=== PATIENT | female | born 1935 | race Caucasian/White ===

== ENCOUNTER → 2017-01-08 | Outpatient (CLI) | payer OTHER | END | disposition home or self-care (01) | LOC: RAD 10:43 | DX: Z13.820 Encounter for screening for osteoporosis (principal); Z78.0 Asymptomatic menopausal state ==

== ENCOUNTER 2017-05-05 13:33 | Emergency (ER) | payer OTHER ==
[~2017-05-05] VITALS: Ht 157.4 cm; Wt 96.2 kg
[2017-05-05] MEDS ORDERED: NORCO 5-325 TA1 EACH PO (15:17)
== END 2017-05-05 15:45 | disposition home or self-care (01) ==
LOC: ED 13:33
DX: S42.295A Other nondisplaced fracture of upper end of left humerus, initial encounter for closed fracture (principal); S00.83XA Contusion of other part of head, initial encounter; M25.522 Pain in left elbow; M25.512 Pain in left shoulder; M54.2 Cervicalgia; Z88.0 Allergy status to penicillin; Z88.4 Allergy status to anesthetic agent; Z90.89 Acquired absence of other organs; W18.09XA Striking against other object with subsequent fall, initial encounter; Y93.89 Activity, other specified; Y92.481 Parking lot as the place of occurrence of the external cause; Y99.9 Unspecified external cause status

== ENCOUNTER → 2017-06-02 | Outpatient (CLI) | payer OTHER ==
[~2017-06-02] MED LIST: NORCO 5-325 TA1 EACH PO
== END | disposition home or self-care (01) ==
LOC: ORTHO 02:14
DX: S42.392D Other fracture of shaft of left humerus, subsequent encounter for fracture with routine healing (principal); X58.XXXD Exposure to other specified factors, subsequent encounter

== ENCOUNTER → 2017-06-30 | Outpatient (CLI) | payer OTHER | END | disposition home or self-care (01) | LOC: ORTHO 03:09 | DX: S42.222D 2-part displaced fracture of surgical neck of left humerus, subsequent encounter for fracture with routine healing (principal); X58.XXXD Exposure to other specified factors, subsequent encounter ==

== ENCOUNTER → 2017-07-27 | Outpatient (CLI) | payer OTHER | END | disposition home or self-care (01) | LOC: ORTHO 01:27 | DX: S42.212D Unspecified displaced fracture of surgical neck of left humerus, subsequent encounter for fracture with routine healing (principal); X58.XXXD Exposure to other specified factors, subsequent encounter ==

== ENCOUNTER → 2017-09-20 | Outpatient (CLI) | payer OTHER | END | disposition home or self-care (01) | LOC: ORTHO 03:36 | DX: S42.212D Unspecified displaced fracture of surgical neck of left humerus, subsequent encounter for fracture with routine healing (principal); X58.XXXD Exposure to other specified factors, subsequent encounter ==

== ENCOUNTER 2019-03-14 17:22 | Emergency (ER) | payer OTHER ==
[~2019-03-14] VITALS: Ht 157.4 cm; Wt 93.0 kg
--- NOTE | ~2019-03-14 | EKG ---
[place], [place] ELECTROCARDIOGRAM REPORT NAME: KAYDEN GANDARA UNIT #: [id number] [facility] BIRTHDATE: [birth year] [facility] Test Date: 2019-03-14 Test Time: 17:47:10 Pat Name: KAYDEN GANDARA Department: Room: [facility] Gender: F Microwave Technician: Maria A Rangel : 1935 Requested By: KIET RUBALCAVA Order Number: [id number] Reading MD: Alcides Alas MD Measurements Intervals [place] Rate: 58 P: 24 IA: 183 QRS: -41 QRSD: 133 T: 129 QT: 470 QTc: 462 Interpretive Statements Sinus rhythm LVH with IVCD, LAD and secondary repol abnrm Electronically Signed On 03-21-2019 4:01:26 PDT by Alcides Alas MD CM:EKGRPT:ELECTROCARDIOGRAM REPORT [id number] KIET ASENCIO DRAFT REPORT KIET RUBALCAVA M.D.
[2019-03-14 17:58] LABS: BASO # 0.1 10*3/uL (0.0-0.1); BASO % 0.9 % (0.0-1.0); EOS # 0.2 10*3/uL (0.0-0.4); EOS % 2.7 % (1.0-4.0); HEMOGLOBIN 10.2 g/dl (12.0-16.0); LYMPH % 13.2 % (27.0-41.0); MEAN CORPUSCULAR HGB 29.1 pg (27.0-31.0); MEAN CORPUSCULAR HGB CONC 30.9 g/dl (33.0-37.0); MEAN PLATELET VOLUME 10.3 fl (9.6-12.3); MONO # 0.5 10*3/uL (0.1-1.0); MONO % 5.9 % (3.0-9.0); NEUT # 5.9 10*3/uL (2.3-7.9); NEUT % 76.9 % (47.0-73.0); PLATELET COUNT AUTOMATED 203 10*3/uL (130-400); RED BLOOD COUNT 3.51 10*6/uL (4.10-5.10); RED CELL DISTRI WIDTH 14.6 % (0-14.5); WHITE BLOOD COUNT 7.7 10*3/uL (4.8-10.8)
[2019-03-14 18:12] LABS: ALBUMIN 3.8 gm/dl (3.1-4.5); CREATININE 2.08 mg/dL (0.55-1.02); POTASSIUM 3.8 mmol/L (3.5-5.1); TOTAL PROTEIN 7.3 gm/dL (6.4-8.2)
[2019-03-14] MEDS ORDERED: FUROSEMIDE20 M1 PO (20:29)
[2019-03-14] MEDS ORDERED: ELIQUIS5 M1 PO (20:29)
[2019-03-14] MEDS ORDERED: AMIODARONE HYD200 MG PO (20:29)
[2019-03-14] MEDS ORDERED: PANTOPRAZOLE SO40 MG PO (20:30)
[2019-03-14] MEDS ORDERED: 'CLONIDINE0.1 MG PO (21:35)
== END 2019-03-14 21:08 | disposition home or self-care (01) ==
LOC: ED 17:22
PROVIDERS: Emergency Medicine
DX: I10 Essential (primary) hypertension (principal); Z88.0 Allergy status to penicillin; Z88.4 Allergy status to anesthetic agent

== ENCOUNTER 2019-09-16 09:53 | Emergency (ER) | payer OTHER ==
[~2019-09-16] VITALS: Ht 152.4 cm; Wt 81.2 kg
[~2019-09-16 09:53] MED LIST changes: +'CLONIDINE0.1 MG PO; +AMIODARONE HYD200 MG PO; +ELIQUIS5 M1 PO; +FUROSEMIDE20 M1 PO; +PANTOPRAZOLE SO40 MG PO
[2019-09-16] MEDS ORDERED: FUROSEMIDE40 MG PO (10:36)
[2019-09-16] MEDS ORDERED: ALDACTONE25 MG PO (10:36)
[2019-09-16] MEDS ORDERED: PROPAFENONE HY150 MG PO (10:38)
[2019-09-16] MEDS ORDERED: VITAMIN D50000 UNIT PO (10:39)
[2019-09-16] MEDS ORDERED: ELIQUIS2.5 M1 PO (10:41)
== END 2019-09-16 13:39 | disposition home or self-care (01) ==
LOC: ED 09:53
DX: S51.011A Laceration without foreign body of right elbow, initial encounter (principal); S00.93XA Contusion of unspecified part of head, initial encounter; I10 Essential (primary) hypertension; I48.91 Unspecified atrial fibrillation; Z88.0 Allergy status to penicillin; Z88.4 Allergy status to anesthetic agent; Z79.899 Other long term (current) drug therapy; W01.0XXA Fall on same level from slipping, tripping and stumbling without subsequent striking against object, initial encounter; Y93.89 Activity, other specified; Y92.098 Other place in other non-institutional residence as the place of occurrence of the external cause; Y99.8 Other external cause status

== ENCOUNTER 2019-09-25 19:55 | Inpatient (IN) | payer OTHER ==
[~2019-09-25] VITALS: Ht 162.6 cm; Wt 95.3 kg
[2019-09-25] VITALS (10 sets, daily range): BP systolic 83–184; BP diastolic 37–94
[~2019-09-25 19:55] MED LIST changes: +ALDACTONE25 MG PO; +ELIQUIS2.5 M1 PO; +FUROSEMIDE40 MG PO; +PROPAFENONE HY150 MG PO; +VITAMIN D50000 UNIT PO
--- NOTE | 2019-09-25 20:16 | NUR ---
PAtient intubated by physician with 7.5 tube, secured at 24 at the teeth. Placed on Vent AC 16, Tidal volume 450, FIO2 100%, Peep +5. Alarms on an functional.
[2019-09-25 21:06] LABS: HEMATOCRIT 34.7 % (37.0-47.0); HEMOGLOBIN 10.4 g/dl (12.0-16.0); MEAN CELL VOLUME 94.3 fl (81.0-99.0); MEAN CORPUSCULAR HGB 28.3 pg (27.0-31.0); MEAN PLATELET VOLUME 10.8 fl (9.6-12.3); PLATELET COUNT AUTOMATED 192 10*3/uL (130-400); RED BLOOD COUNT 3.68 10*6/uL (4.10-5.10); RED CELL DISTRI WIDTH 16.1 % (0-14.5); WHITE BLOOD COUNT 11.5 10*3/uL (4.8-10.8)
[2019-09-25 21:14] LABS: INTERNATIONAL NORM RATIO 1.1 (2.0-3.5)
--- NOTE | 2019-09-25 21:17 | NUR ---
ET tube pulled back and secured at 22 at the teeth.
[2019-09-25 21:23] LABS: ALBUMIN 3.5 gm/dl (3.1-4.5); CREATININE 2.3 mg/dL (0.55-1.02); POTASSIUM 5.4 mmol/L (3.5-5.1); TOTAL PROTEIN 7.1 gm/dL (6.4-8.2)
[2019-09-25 21:25] LABS: TROPONIN I 0.111 ng/ml (<0.045)
[2019-09-25 21:28] LABS: BASOPHILS 1 % (0-1); TOTAL CELLS COUNTED 100 #CELLS
[2019-09-25 21:29] LABS: OVALOCYTES FEW; PLATELET SUFFICIENCY NORMAL (NORMAL)
--- NOTE | 2019-09-25 21:30 | NUR ---
FAMILY ASKED FOR NO PHOTOS TO BE TAKEN, UNABLE TO OBTAIN WOUND PHOTOS
[2019-09-25 21:48] LABS: BILIRUBIN NEGATIVE (NEGATIVE); BLOOD 3+ (NEGATIVE); CLARITY CLOUDY (CLEAR); COLOR YELLOW (YELLOW); GLUCOSE NEGATIVE (NEGATIVE); KETONE NEGATIVE (NEGATIVE); LEUKO ESTERASE TRACE (NEGATIVE); NITRITE NEGATIVE (NEGATIVE); SPECIFIC GRAVITY >= 1.030 (1.005-1.030); UROBILINOGEN 0.2 E.U./dl (0.2-1.0)
[2019-09-25 21:54] LABS: BACTERIA 2+; WBC 31-40 wbc/hpf (0-5)
--- NOTE | 2019-09-25 22:30 | NUR ---
A 84, admitted to ICCU, under the services of JUAN LUIS Tabares DO with a diagnosis of CHF, RESPIRATORY FAILURE. Chief complaint is SHORTNESS OF BREATH. Patient arrived via stretcher from ER. Monitor applied. Initial assessment completed. Vital signs taken and recorded. JUAN LUIS TABARES DO notified of admission to the unit. Orders received. See assessment for past medical history, medications and allergies. Patient and/or family oriented to unit. [facility]U visitation policy reviewed. Clothing/patient valuable form completed. ANAT BRADY
--- NOTE | 2019-09-25 22:41 | NUR ---
NO FAMILY WITH PATIENT. PATIENT IS INTUBATED AND SEDATED, UNABLE TO ASK QUESTIONS OR GET ANSWERS AT THIS TIME. UNABLE TO CONFIRM MEDICATIONS, ALLERGIES, ETC.
--- NOTE | 2019-09-25 23:05 | NUR ---
PATIENT ARRIVED BACK FROM CT WITH RN AND TWO RESPIRATORY THERAPISTS. VITALS SIGNS STABLE AT THIS TIME. PATIENT IS ON FENTANYL DRIP, AWAKE, RESTLESS IN BED.
[2019-09-25 23:40] LABS: ABG BASE EXCESS -1.3 mmol/L (-2.0-2.0); ARTERIAL BLOOD GAS PH 7.287 (7.35-7.45)
--- NOTE | 2019-09-25 23:40 | NUR ---
CALL OUT TO [facility], DR FUCHS TURRET PRESS OPERATOR. MESSAGE LEFT, AWAITING CALL BACK
--- NOTE | 2019-09-25 23:50 | NUR ---
DR GIBSON CALLED AND ORDERS RECIEVED
--- NOTE | 2019-09-25 23:55 | NUR ---
THE REST OF THE IV FENTANYL WASTED AND WITNESSED BY ANAT MAURICIO. APPROXIMATELY 45ML WAS LEFT IN BAG, DUMPED INTO MEDICATION WASTE CONTAINER. PATIENT WAS THEN SWITCHED TO DIPROVAN PER MD ORDER
[2019-09-26] VITALS (9 sets, daily range): BP systolic 103–188; BP diastolic 26–77
--- NOTE | 2019-09-26 00:15 | NUR ---
VENT CHANGES MADE PER ORDER. RATE INCREASED TO 20. FIO2 DECREASED TO 40%. WILL CONTINUE TO MONITOR
[2019-09-26 03:35] LABS: BASO % 0.3 % (0.0-1.0); EOS # 0.3 10*3/uL (0.0-0.4); EOS % 2.3 % (1.0-4.0); HEMATOCRIT 30.3 % (37.0-47.0); HEMOGLOBIN 9.4 g/dl (12.0-16.0); LYMPH # 0.4 10*3/uL (1.3-4.4); LYMPH % 3.2 % (27.0-41.0); MEAN CELL VOLUME 92.1 fl (81.0-99.0); MEAN CORPUSCULAR HGB 28.6 pg (27.0-31.0); MEAN PLATELET VOLUME 11.1 fl (9.6-12.3); MONO # 0.6 10*3/uL (0.1-1.0); MONO % 4.9 % (3.0-9.0); NEUT # 10.6 10*3/uL (2.3-7.9); PLATELET COUNT AUTOMATED 160 10*3/uL (130-400); RED BLOOD COUNT 3.29 10*6/uL (4.10-5.10); RED CELL DISTRI WIDTH 15.9 % (0-14.5); WHITE BLOOD COUNT 11.9 10*3/uL (4.8-10.8)
--- NOTE | 2019-09-26 03:50 | NUR ---
WOUND CARE ORDERS OBTAINED FROM DR DUFF AT THIS TIME
[2019-09-26 03:53] LABS: ALBUMIN 3.1 gm/dl (3.1-4.5); CREATININE 2.24 mg/dL (0.55-1.02); PHOSPHOROUS 3.8 mg/dL (2.5-4.9); POTASSIUM 5.8 mmol/L (3.5-5.1); TOTAL PROTEIN 6.6 gm/dL (6.4-8.2)
[2019-09-26 03:55] LABS: FREE T4 1.49 ng/dl (0.76-1.46)
[2019-09-26 04:00] LABS: THYROID STIM HORMONE (HS) 1.75 uIU/ml (0.358-4.75)
--- NOTE | 2019-09-26 04:29 | NUR ---
DRESSINGS APPLIED TO WOUNDS PER DRS ORDERS. SEE WOUNDS SCREEN AND ORDERS
[2019-09-26 06:16] LABS: VITAMIN D, 25-HYDROXY 54.1 ng/mL (30-100)
--- NOTE | 2019-09-26 06:22 | NUR ---
KAYDEN GANDARA [id number] Please refer to the physician's history and physical for past medical history, comorbid conditions, and allergies. Diagnosis: CHF RESPIRATORY FAILURE Cortes Score: 15,AT RISK WOUND DESCRIPTIONS: Wound Number: 1 Location of the wound: right elbow Type of wound: skin tear Thickness: Partial Size: 2.8cm x 4.1cm x 0.1cm Tunneling: none Undermining: none Sinus Tract: none Presence of Exudate: Serosanguineous Amount: Light Color: Red Odor: None Periwound Skin Appearance: Normal Wound edges: approximated Pain (associated with wound): none at time of assessment How does patient state this happened? pt unable to state how this happened Wound Number: 2 Location of the wound: left upper arm Type of wound: skin tear Thickness: Partial Size: 0.4cm x 0.8cm x 0.1cm Tunneling: none Undermining: none Sinus Tract: none Presence of Exudate: Serosanguineous Amount: Light Color: Red Odor: None Periwound Skin Appearance: Normal Wound edges: approximated Pain (associated with wound): none at time of assessment How does patient state this happened? pt unable to state how this happened Wound Number: 3 Location of the wound: bridge of nose Thickness: Partial Size: 0.1cm x 1.0cm x 0.1cm Tunneling: none Undermining: none Sinus Tract: none Presence of Exudate: Serosanguineous Amount: Light Color: Red Odor: None Periwound Skin Appearance: Normal Wound edges: approximated Pain (associated with wound): none at time of assessment How does patient state this happened? pt unable to state how this happened Surface the patient is resting on: XPRT SKIN PREVENTION RECOMMENDATION: 1. Pressure redistribution support surface as appropriate 2. Elevate heels 3. Remove boots/TEDS every shift and reapply 4. Head of bed 30 degrees as tolerated 5. Assess nutrition and hydration 6. Manage moisture 7. Avoid the use of containment devices while in bed 8. Use absorptive products on surfaces limit layers of linens on bed 9. Turn and reposition every 1-2 hours in bed and every 1 hour in chair as tolerated 10. Weight shifts every 15 minutes while up in chair 11. Offloading with pillows or device to keep heels elevated off bed 12. Monitor skin at least every shift 13. Inspect under medical devices twice a day WOUND TREATMENT RECOMMENDATIONS: Clarify skin tear guidelines: Cleanse right elbow with nss and apply sureprep around the wound hydrogel and versatel to wound bed and cover with optifoam gentle every 2 days and prn. Continue skin tear guidelines to left upper arm. d/c skin tear guidelines to bridge of nose Partial thickness guidelines: Cleanse bridge of nose with nss and apply sureprep around the wound hydrogel to wound bed and cover with bandaid daily and prn for soiling. Heel raiser pro boots to bilateral feet while in bed.
[2019-09-26 07:03] LABS: ABG BASE EXCESS 0.7 mmol/L (-2.0-2.0); ARTERIAL BLOOD GAS PH 7.415 (7.35-7.45)
--- NOTE | 2019-09-26 08:35 | NUR ---
Dr. Gillespie notified of wound care recommendations.
--- NOTE | 2019-09-26 09:00 | NUR ---
ECHO BEING DONE AT BEDSIDE
--- NOTE | 2019-09-26 09:00 | NUR ---
RESTING IN BED. SEDATED ON VENT. REMAINS ON DIPRIVAN GTT AT 25 MERARI'S VIA RIGHT FEMORAL MULTILUMEN CATHETER. PULSE OX 96% ON VENT FIO2 40%. 3+ PITTING EDEMA NOTED BILATERAL FEET. CODY DRAINING CLEAR YELLOW URINE
--- NOTE | 2019-09-26 10:15 | NUR ---
OCCUPATIONAL THERAPY Per medical meeting pt still intubated on vent not appropriate at this time will follow. Alexandra Cam OTR/L
--- NOTE | 2019-09-26 10:22 | NUR ---
PHYSICAL THERAPY Per medical meeting pt still intubated on vent not appropriate at this time will follow. Zhanna Sheridan PT
--- NOTE | 2019-09-26 10:25 | NUR ---
DIPRIVAN GTT TURNED OFF.
--- NOTE | 2019-09-26 10:58 | NUR ---
PATIENT CHANGED TO C-PAP 5, PSV +10.
--- NOTE | 2019-09-26 11:00 | NUR ---
PLACED ON C-PAP
--- NOTE | 2019-09-26 11:59 | NUR ---
Nutritional Support Services Note: Pt. isidro in vent. Dx of chf and resp failure. Pt. is NPO receiving Pulmocare infusing at 20 ml/hr. Ht: 5"4' CBW: 210# Tube feeding provides 480 cc/720 pablo/24 hrs. Monitor for advancement of PO intake. Follow as needed. Sophia Wagner, U dietetic student
[2019-09-26 12:53] LABS: ABG BASE EXCESS 1.6 mmol/L (-2.0-2.0); ARTERIAL BLOOD GAS PH 7.394 (7.35-7.45)
--- NOTE | 2019-09-26 13:00 | NUR ---
Mental Health Advanced Practice Nurse in to see patient. She is currently intubated. Will follow up at a later time.
--- NOTE | 2019-09-26 13:04 | NUR ---
ABG RESULTS CALLED TO DR. GIBSON. ORDERS RECEIVED TO EXTUBATE
[2019-09-26] MEDS ORDERED: BENICAR5 MG PO (14:45)
[2019-09-26] MEDS ORDERED: ROBAXIN-750750 MG PO (14:47)
[2019-09-26] MEDS ORDERED: LASIX40 MG PO (14:48)
[2019-09-26] MEDS ORDERED: VITAMIN D10000 UNIT PO (14:52)
[2019-09-26] MEDS ORDERED: MIRALAX119 GM PO (15:00)
[2019-09-26] MEDS ORDERED: IRON325 M1 PO (15:13)
--- NOTE | 2019-09-26 15:14 | NUR ---
MED REC UPDATED PER [facility]
--- NOTE | 2019-09-26 20:02 | NUR ---
DR LIZARRAGA NOTIFIED OF POSITIVE BLOOD CULTURES. ORDERS RECEIVED.
--- NOTE | 2019-09-26 21:15 | NUR ---
PT REMAINS WITHOUT DISTRESS. COUGH IS STILL MOIST AND LOOSER PER PT. REMAINS WHEEZY. PULSE OX REMAINS >90% SINCE TITRATED DOWN TO 3L BY RESP DEPT.
--- NOTE | 2019-09-26 21:32 | NUR ---
PT AWOKE FOR PM MEDICATIONS. SHE WAS SLEEPING WITH MOUTH OPEN AND PULSE OX DIPPING INTO THE UPPER 80'S ON NC3. INCREASED O2 TO 4L, PT AWOKE EASILY, AND TOOK PO MEDICATIONS WITHOUT ANY DIFFICULTY. PULSE OX NOW 96%.
[2019-09-27] VITALS: BP 153/63
--- NOTE | 2019-09-27 03:53 | NUR ---
ASSESSMENT COMPLETE. PT REMAINS PLEASANT AND WITHOUT COMPLAINTS.
[2019-09-27 04:00] VITALS: BP 165/57
[2019-09-27 05:49] LABS: CREATININE 2.4 mg/dL (0.55-1.02)
[2019-09-27 05:50] LABS: POTASSIUM 4.2 mmol/L (3.5-5.1)
[2019-09-27 06:13] LABS: HEMATOCRIT 29.3 % (37.0-47.0); HEMOGLOBIN 9.1 g/dl (12.0-16.0); MEAN CELL VOLUME 90.2 fl (81.0-99.0); MEAN CORPUSCULAR HGB CONC 31.1 g/dl (33.0-37.0); MEAN PLATELET VOLUME 11.4 fl (9.6-12.3); PLATELET COUNT AUTOMATED 208 10*3/uL (130-400); RED BLOOD COUNT 3.25 10*6/uL (4.10-5.10); RED CELL DISTRI WIDTH 16.3 % (0-14.5); WHITE BLOOD COUNT 11.4 10*3/uL (4.8-10.8)
[2019-09-27 06:40] LABS: TOTAL CELLS COUNTED 100 #CELLS
[2019-09-27 06:41] LABS: OVALOCYTES FEW; PLATELET SUFFICIENCY NORMAL (NORMAL); TOXIC GRANULATION SLIGHT
[2019-09-27 08:00] VITALS: BP 154/68
--- NOTE | 2019-09-27 08:55 | NUR ---
DR. GIBSON HERE TO SEE PATIENT
--- NOTE | 2019-09-27 09:00 | NUR ---
Lathe Mechanic in to talk to patient. Patient states lives at home alone with her family checking in on her. There are 12 steps in the home. Physician: Dr. Roman Neff Pharmacy: [facility] Home health services: none Patient's level of ADLs: MINIMAL ASSIST Patient has working utilities: yes DME: cane, walker, O2 @ 2L nc, portable O2 tanks, O2 supplier in [place] Follow-up physician's appointment after d/c: will be made by the hospitalist nurse director upon discharge Does patient want to access PORTAL?: no Discharge plan discussed with patient. She lives at home alone with her family checking in on her. She states she is normally independent in her ADLs and ambulates with either a cane or a walker. She stays on the 1st floor of her home and sleeps up in her recliner. Discussed short term SNF and she is agreeable. When provided with a list of facilities she chose 1. [facility], [facility]. [facility], and 3. [facility]. Discussed home health care services and she is agreeable. When provided with a list of agencies she chose [facility] as she has had them in the past. land use planner notified for SNF referrals. She states her daughter will provide transportation on discharge. SAMRA MACK
--- NOTE | 2019-09-27 09:29 | NUR ---
Upon discharge recommend patient to follow up for wound care in outpatient setting continue current wound care orders at discharging facility.
--- NOTE | 2019-09-27 09:40 | NUR ---
Occupational therapy orders received and OT evaluation completed in full in the ICCU. Patient precautions include fall risk, ww use, 4LO2, heart monitor, and B/L LE weakness. Per OT eval, OT recommends a SNF. If refused, home with HH SN, OT, and PT. Patient would benefit from continued OT treatment to maximize safety and independence with ADLs, mobility, and transfers[place], [address]. Thank you for the referral. Aishwarya Fang, OTR/L
--- NOTE | 2019-09-27 10:00 | NUR ---
TRANSFERRED TO ROOM 407-1 VIA CHAIR. REPORT GIVEN TO RN
--- NOTE | 2019-09-27 10:47 | NUR ---
PHYSICAL THERAPY Eval completed pt moderate level of complexity 01909 full report to follow recomend SNF at discharge. PT to work on transfers, amb with AD, strengthening balance/safety. Zhanna Sheridan PT
--- NOTE | 2019-09-27 11:43 | NUR ---
Faxed demographics sheet to [facility] for benefits check. Waiting on response.
[2019-09-27 12:00] VITALS: BP 123/43
--- NOTE | 2019-09-27 14:21 | NUR ---
PHYSICAL THERAPY Patient seen this pm 1:1 for therapy visit and was sitting up in bedside chair, her daughter present upon therapist arrival. Patient identified by name / and reports no new c/o's at this time. Patient also presented with continuous O2-3L via NC, recording resting HR 74 bpm. Patient performed several sit to stand transfers, MIN A, with use of wh walker standing support. Patient tolerated approx 1 minute static stand each trial recording increase HR 88 bpm. Patient fatigues quickly, requiring brief seated rest between attmepts and instructed on seated B LE therex. Patient performed seated B LE therex, all planes x 10 reps each and remained in bedside chair with call light, tray table, and telephone under her daughters Supervision. Will continue per POC as tolerated, total treatment time 17 minutes. Ramon Pina, NURSE OFFICE
[2019-09-27 16:00] VITALS: BP 145/45
--- NOTE | 2019-09-27 19:26 | NUR ---
PT AWAKE SITTING UP IN CHAIR. NO S/S OF DISTRESS NOTED. O2 IN USE. RESPIRATORY AT BEDSIDE. WILL MONITOR. CALL LIGHT IN REACH.
[2019-09-27 20:00] VITALS: BP 140/43
[2019-09-28] VITALS: BP 140/48
[2019-09-28 06:22] LABS: HEMATOCRIT 29.9 % (37.0-47.0); HEMOGLOBIN 9.2 g/dl (12.0-16.0); MEAN CELL VOLUME 91.7 fl (81.0-99.0); MEAN CORPUSCULAR HGB 28.2 pg (27.0-31.0); MEAN CORPUSCULAR HGB CONC 30.8 g/dl (33.0-37.0); MEAN PLATELET VOLUME 11.1 fl (9.6-12.3); PLATELET COUNT AUTOMATED 212 10*3/uL (130-400); RED BLOOD COUNT 3.26 10*6/uL (4.10-5.10); RED CELL DISTRI WIDTH 16.3 % (0-14.5); WHITE BLOOD COUNT 13.6 10*3/uL (4.8-10.8)
[2019-09-28 06:35] LABS: CREATININE 2.42 mg/dL (0.55-1.02); POTASSIUM 4.4 mmol/L (3.5-5.1)
[2019-09-28 07:21] LABS: ATYPICAL LYMPHS 1 % (0-0); OVALOCYTES MODERATE; POLYCHROMASIA SLIGHT; TOTAL CELLS COUNTED 100 #CELLS
[2019-09-28 07:22] LABS: PLATELET SUFFICIENCY NORMAL (NORMAL)
--- NOTE | 2019-09-28 07:45 | NUR ---
PHYSICAL THERAPY Patient seen this am 1:1 for therapy visit and was sitting up in bedside chair upon therapist arrival. Patient identified by name / and was very pleasant this morning voicing no c/o's pain. Patient presented with continuous O2-2L via NC and resting HR 68 bpm. Patient performed several sit to stand transfers from low chair surface, MIN A, needing v/c for proper hand placement to improve transfer technique. Patient ambulated with use of wh walker, CGA, 30'x 1, demonstrating very slow, cautious gait pattern, especially during all turns. Patient required v/c to improve walker safety and step sequence, then returned to bedside chair with mild fatigue. Patient stated she was pleased wiht her performance this session and that it felt good to walk again. Patient also received instruction on visual fixation technique during gait ex to improve steady balance to reduce risk of fear of falling. Patient remained in bedside chair with call light, tray table and telephone. Will continue per POC as tolerated, total treatment time 16 minutes. Ramon Pina, ACCOUNT DEVELOPMENT REPRESENTATIVE
--- NOTE | 2019-09-28 07:50 | NUR ---
OT NOTE Pt was seen this A.M. 1:1 for 20 minute OT session. Upon arrival pt was sitting semi reclined in the recliner. Pt identified by name and and had no complaints at this time. Pt presented to therapy with continuous 2L-O2 via NC which she remained on throughout the entire session. Pt's resting heart rate was 68 bpm. While seated pt donned B socks with SBA while bringing her leg up to her knee level. Sit to stand then completed from chair level with Ta and use of w/w for UE support. Challenged pt's static standing tolerance needed for increased I in self care tasks and functional transfers. Pt was able to tolerate aprox 3 minutes at a time before sitting due to fatigue. Functional mobility was then completed to the bedside commode with CGA and use of w/w for UE support. Pt transferred on/off bedside commode with Ta and verbal prompts for safety with turning due to picking the walker off the ground. Functional mobility was then completed to the bathroom and back with CGA and use of w/w. Pt was left sitting upright in the recliner with call light in hand, tray table in place, and phone in reach. continue with rec D/C plan to SNF. AB Benítez/Shannon
[2019-09-28 08:00] VITALS: BP 138/74
--- NOTE | 2019-09-28 08:13 | NUR ---
Angella at [facility] stated patients insurance check stating she is covered 100%. Faxed referral, asked to review and start precert. Waiting for auth.
--- NOTE | 2019-09-28 10:00 | NUR ---
Complaining of itching and tenderness right groin area. Femerol MLC outdated. Removed cath, pressure dressing applied for 12 minutes. Site clear, no drainage. Sterile dressing applied. Catheter fully intact. patient denies any pain or discomfort. States is feeling better. Will continue to monitor site. Sharron DENIS
--- NOTE | 2019-09-28 10:30 | NUR ---
Student Counsellor in to see patient. Discussed [facility] vs [facility]. She is unsure at this time if she wants to go to [facility] and will let CM know at a later time. demand planner following.
--- NOTE | 2019-09-28 11:00 | NUR ---
Right femerol dressing clean and dry. no patient complaints. Sitting up in recliner chair. Sharron DENIS
[2019-09-28 12:00] VITALS: BP 140/72
--- NOTE | 2019-09-28 13:32 | NUR ---
OT NOTE Pt was seen this P.M. 1:1 for 15 minute OT session. Upon arrival pt was supine in bed. Pt identified by name and and had no complaints at this time. Pt presented to therapy with continuous 2.5L-O2 via NC which she remained on throughout the entire session. Sit to stand completed from chair level with Ta and use of w/w for UE support. Functional mobility was then completed into the bathroom with CGA and use of w/w. There she transferred on/off standard commode with CGA and use of grab bar. Pt then stood sink side while washing her hands with CGA, pt had one minor LOB that occured while standing unsupported that was able to be self corrected. Pt was left sitting upright in the recliner with call light in hand, tray table in place, and phone in reach. Continue with rec D/C plan to SNF. DILIP Benítez
[2019-09-28 16:00] VITALS: BP 144/70
[2019-09-28 20:00] VITALS: BP 160/56
[2019-09-29] VITALS: BP 146/57
--- NOTE | 2019-09-29 05:40 | NUR ---
DRESSING TO R ARM SKIN TEAR CHANGED PER ORDER. PT TOLERATED WELL. WILL MONITOR. CALL LIGHT IN REACH.
[2019-09-29 06:51] LABS: HEMATOCRIT 29.7 % (37.0-47.0); HEMOGLOBIN 9.2 g/dl (12.0-16.0); MEAN CELL VOLUME 91.4 fl (81.0-99.0); MEAN CORPUSCULAR HGB 28.3 pg (27.0-31.0); MEAN PLATELET VOLUME 10.9 fl (9.6-12.3); PLATELET COUNT AUTOMATED 249 10*3/uL (130-400); RED BLOOD COUNT 3.25 10*6/uL (4.10-5.10); WHITE BLOOD COUNT 12.8 10*3/uL (4.8-10.8)
[2019-09-29 06:54] LABS: CREATININE 2.36 mg/dL (0.55-1.02); POTASSIUM 4.4 mmol/L (3.5-5.1)
[2019-09-29 07:13] LABS: OVALOCYTES FEW; PLATELET SUFFICIENCY NORMAL (NORMAL); POLYCHROMASIA SLIGHT; TOTAL CELLS COUNTED 100 #CELLS
[2019-09-29 08:00] VITALS: BP 140/60
--- NOTE | 2019-09-29 11:00 | NUR ---
Cutter Out in to see patient. She is sitting up in her recliner at the bedside. Discussed short term SNF at [facility] and she would like to see what her daughter thinks. She asked if she would have a TV and explained to her that she would. She asked if her insurance would cover her stay, explained her insurance will cover 100%. When medically stable and precert is obtained she will be discharged to [facility]. product planner following.
--- NOTE | 2019-09-29 11:40 | NUR ---
Updated clinicals faxed to [facility] for review. patient's precert started 09/28/19, waiting for auth
[2019-09-29 12:00] VITALS: BP 136/66
--- NOTE | 2019-09-29 13:40 | NUR ---
PHYSICAL THERAPY Patient seen this pm 1:1 for therapy visit and was sitting up in bedside chair following lunch upon therapist arrival. Patient identified by name / and was very pleasant, presenting with continuos O2-2L via NC. Patient instructed on therex to increase strength and completed seated B LE therex, all planes, 2 x 10 reps each without c/o. Patient needed both verbal / visual cueing to complete a ex to obtain full AROM. Patient reported no new c/o's other than a little L posterior shoulder discomfort and following a brief seated rest break was able to complete several sit to stand transfers from low chair surface. Patient transfered sit to stand, MIN A, with use of B UE support, tolerating 30-45 seconds static stand each trial. Patient fatigues quickly, needing rest break between standing attempts and returned to bedside chair following all therapy treatment. Patient remained in chair with call light, tray table, and telephone. Will continue per POC as tolerated, total treatment time 23 minutes. Ramon Pina, STEM PROCESSING MACHINE OPERATOR
--- NOTE | 2019-09-29 15:32 | NUR ---
PHYSICAL THERAPY CO-SIGN I approve of the Physical Therapy notes written above. Zhanna Sheridan PT
[2019-09-29 16:00] VITALS: BP 146/47
[2019-09-29 20:00] VITALS: BP 110/40
[2019-09-30] VITALS: BP 159/49
[2019-09-30 08:00] VITALS: BP 156/51
[2019-09-30 08:45] VITALS: BP 158/76
[2019-09-30 12:00] VITALS: BP 152/43
--- NOTE | 2019-09-30 13:06 | NUR ---
PHYSICAL THERAPY BANQUET HOUSEPERSON attempted to see patient x 2 this date-- patient just received lunch with first attempt, second attempt patient sleeping in bedside chair. Connie Barrientos, BANQUET HOUSEPERSON
[2019-09-30 16:00] VITALS: BP 102/84
[2019-09-30 20:00] VITALS: BP 148/56
[2019-10-01] VITALS: BP 149/46
[2019-10-01 07:37] LABS: ALBUMIN 2.7 gm/dl (3.1-4.5); CREATININE 1.99 mg/dL (0.55-1.02); POTASSIUM 4.9 mmol/L (3.5-5.1); TOTAL PROTEIN 6.1 gm/dL (6.4-8.2)
[2019-10-01 08:00] VITALS: BP 145/52
[2019-10-01 12:00] VITALS: BP 148/63
[2019-10-01 16:00] VITALS: BP 141/44
[2019-10-01 20:00] VITALS: BP 134/74
--- NOTE | 2019-10-01 23:45 | NUR ---
PATIENT DENIES ANY NEEDS AT THIS TIME. RESTING IN CHAIR AT BEDSIDE WITH LEGS ELEVATED. CALL LIGHT IN REACH
[2019-10-02] VITALS: BP 154/52
[2019-10-02 08:00] VITALS: BP 167/48
[2019-10-02 08:30] VITALS: BP 168/80
--- NOTE | 2019-10-02 08:40 | NUR ---
PT WAS WALKING WITH THERAPY. RESTING IN RECLINER CHAIR AT THIS TIME. RESP-EASY AND REGULAR. OXYGEN IN USE. NO C/O AT THIS TIME. CALL LIGHT IN REACH. SEE SHIFT ASESSSMENT.
--- NOTE | 2019-10-02 08:45 | NUR ---
PHYSICAL THERAPY Patient seen this am 1:1 for therapy visit and was sitting up in bedside chair upon therapist arrival. Patient identified by name / and was very pleasant this morning voicing no c/o's pain. Patient presented with continuos O2-2L via NC, HR 55 bpm. and transfers sit to stand with MIN A. Patient ambulates with use of wh walker, CGA for straight line gait, Min A during all turns secondary to unsteady step sequence. Patient ambulated 20'x 1 to bathroom then addtional 40'x 1 in hallway, demonstrating decreased stride, slow huong and increased fatigue. Patient returned to bedside chair and remained with call light, tray table and telephone with SpO2 93%, HR 60 bpm. Will continue per POC as tolerated, total treatment time 17 minutes. Ramon Pina, WIND ENERGY MECHANIC
--- NOTE | 2019-10-02 08:46 | NUR ---
OT NOTE Pt was seen this A.M. 1:1 for 23 minute OT session. Upon arrival pt was sitting upright in the recliner. Pt identified by name and and had no complaints at this time. Pt presented to therapy with continuous 2L-O2 via NC which she remained on throughout the entire session. Pt completed sit to stand from chair level with Ta and use of w/w for UE support. While standing challenged pt's dynamic standing balance while weight shifting, crossing midline, and reaching over all planes. Pt was able to maintain F-/F standing balance throughout. Functional mobility was then completed to the bathroom with CGA and use of w/w. There she transferred on to standard commode with CGA and use of grab bar for UE support. Clothing management completed with Ta due to being unsteady without UE support and toilet hygiene completed with SBA while seated. Pt then transferred off standard commode with Ta due to low surface. She then stood sink side while washing her hands with CGA. Pt required verbal instructions to step closer to the sink and bring the walker with her due to reaching outside safe base of support. Functional mobility was then completed back to the recliner with CGA and use of w/w. There she was left sitting upright with call light in hand, tray table in place, and phone in reach. Continue with rec D/C plan to SNF. DILIP Benítez
--- NOTE | 2019-10-02 09:00 | NUR ---
Automated Manufacturing Instructor in to see patient. She is sitting up in her recliner at the bedside. No new needs or request at this time. When medically stable and precert is received she will be discharged to [facility]. menu planner following.
--- NOTE | 2019-10-02 09:35 | NUR ---
updated clinicals and therapy notes faxed to [facility] to continue precert. waiting on auth.
[2019-10-02 12:00] VITALS: BP 135/43
--- NOTE | 2019-10-02 14:15 | NUR ---
PHYSICAL THERAPY Patient seen this pm 1:1 for therapy visit and was sitting up in bedside chair upon therapist arrival. Patient identified by name / and was very pleasant this afternoon. Patient performed seated B LE therex, all planes, x 15 reps each to increase LE strength. Patient demonstrated increased difficulty with L LE marching and LAQ due to muscle weakness. Patient also completed several sit to stand tranfers from low chair surface, MIN A with use wh walker standing support. Patient remained in bedside chair with call light, tray table and telephone. Will continue per POC as tolerated, total treatment time 17 minutes. Ramon Pina, REHAB TECH
[2019-10-02 16:00] VITALS: BP 152/46
--- NOTE | 2019-10-02 16:15 | NUR ---
PT SITTING UP IN RECLINER CHAIR. RESP-EASY AND REGULAR. OXYGEN IN USE. NO C/O AT THIS TIME. CALL LIGHT IN REACH. SEE SHIFT ASSESSMENT.
[2019-10-02 20:00] VITALS: BP 155/44
[2019-10-03] VITALS: BP 142/46
--- NOTE | 2019-10-03 05:22 | NUR ---
KAYDEN GANDARA [id number] Please refer to the physician's history and physical for past medical history, comorbid conditions, and allergies. Diagnosis: CHF RESPIRATORY FAILURE Cortes Score: 15,AT RISK WOUND DESCRIPTIONS: ( revisit ) Wound Number: 1 Location of the wound: right elbow Type of wound: skin tear Thickness: Partial Size: 0.5cm x 1.0cm x 0.1cm Tunneling: none Undermining: none Sinus Tract: none Presence of Exudate: Serosanguineous Amount: Light Color: Red Odor: None Periwound Skin Appearance: Normal Wound edges: approximated Pain (associated with wound): none at time of assessment Wound Number: 2 Location of the wound: left upper arm Type of wound: skin tear Thickness: Partial Size: 0.4cm x 0.8cm x 0.1cm Tunneling: none Undermining: none Sinus Tract: none Presence of Exudate: none Amount: none Color: Red Odor: None Periwound Skin Appearance: Normal Wound edges: approximated Pain (associated with wound): none at time of assessment Wound Number: 3 Location of the wound: bridge of nose Thickness: Partial Size: 0.1cm x 0.5cm x 0.1cm Tunneling: none Undermining: none Sinus Tract: none Presence of Exudate: none Amount: none Color: Red Odor: None Periwound Skin Appearance: Normal Wound edges: approximated Pain (associated with wound): none at time of assessment Surface the patient is resting on: gerichair SKIN PREVENTION RECOMMENDATION: 1. Pressure redistribution support surface as appropriate 2. Elevate heels 3. Remove boots/TEDS every shift and reapply 4. Head of bed 30 degrees as tolerated 5. Assess nutrition and hydration 6. Manage moisture 7. Avoid the use of containment devices while in bed 8. Use absorptive products on surfaces limit layers of linens on bed 9. Turn and reposition every 1-2 hours in bed and every 1 hour in chair as tolerated 10. Weight shifts every 15 minutes while up in chair 11. Offloading with pillows or device to keep heels elevated off bed 12. Monitor skin at least every shift 13. Inspect under medical devices twice a day WOUND TREATMENT RECOMMENDATIONS: Continue skin tear guidelines to right elbow Continue skin tear guidelines to left upper arm. Continue partial thickness guidelines to bridge of nose Continue Heel raiser pro boots to bilateral feet while in bed.
[2019-10-03 06:49] LABS: HEMATOCRIT 31.2 % (37.0-47.0); HEMOGLOBIN 9.6 g/dl (12.0-16.0); MEAN CELL VOLUME 89.4 fl (81.0-99.0); MEAN CORPUSCULAR HGB 27.5 pg (27.0-31.0); MEAN CORPUSCULAR HGB CONC 30.8 g/dl (33.0-37.0); MEAN PLATELET VOLUME 10.2 fl (9.6-12.3); PLATELET COUNT AUTOMATED 306 10*3/uL (130-400); RED BLOOD COUNT 3.49 10*6/uL (4.10-5.10); RED CELL DISTRI WIDTH 15.8 % (0-14.5); WHITE BLOOD COUNT 15.8 10*3/uL (4.8-10.8)
[2019-10-03 07:07] LABS: ALBUMIN 2.6 gm/dl (3.1-4.5); CREATININE 1.96 mg/dL (0.55-1.02); POTASSIUM 5.1 mmol/L (3.5-5.1)
[2019-10-03 07:10] LABS: TOTAL PROTEIN 5.6 gm/dL (6.4-8.2)
[2019-10-03 07:15] LABS: TOTAL CELLS COUNTED 100 #CELLS
[2019-10-03 07:16] LABS: OVALOCYTES FEW; PLATELET SUFFICIENCY NORMAL (NORMAL); TOXIC GRANULATION SLIGHT
[2019-10-03 08:00] VITALS: BP 141/40
--- NOTE | 2019-10-03 08:40 | NUR ---
PHYSICAL THERAPY Patient seen this am 1:1 for therapy visit and was sitting up in bedside chair upon therapist arrival. Patient identified by name / and states that she sleeps in this recliner chair secondary to Respiratory issues. Patient presented with continuous O2-2L via NC and reports just receiving breathing treatment. Patient was very pleasant this morning, transfering sit to stand MIN A from low chair surface. Patient ambulates with use walker, 15'x 1 to bathroom then additional 50'x 1, CGA, walker, demonstrating very slow huong, decreased stride and c/o of B LE's being sore from yesteray's therex. Patient SpO2 and HR remained WFL's throughout entire therapy session, however with noted increased fatigue following gait ex. Patient returned to bedside chair and remained with call light, tray table and telephone. Will continue per POC as tolerated, total treatment time 17 minutes. Ramon Pina, CAUSTIC OPERATOR
--- NOTE | 2019-10-03 08:40 | NUR ---
OT NOTE Pt was seen this A.M. 1:1 for 20 minute OT session. Upon arrival pt was sitting upright in the recliner. Pt identified by name and and had complaints of "mild" R quad pain which she did not rate on 0-10 pain scale. Pt presented to therapy with continuous 2L-O2 via NC which she remained on throughout the entire session. Pt completed sit to stand from chair level with Ta and use of w/w for UE support. Challenged pt's static standing tolerance needed for increased I in self care tasks and functional transfers, pt was ablee to tolerate aprox 4 minutes at a time before sitting due to fatigue. Functional mobility was then completed to the bathroom with CGA and use of w/w. Pt transferred on to standard commode with CGA and use of grab bar for UE support. Clothing management completed with Ta due to being unsteady without UE support and toilet hygiene completed with supervision while seated. Pt then transferred off standard commode with Ta due to low surface. She then stood sink side while washing her hands with CGA for safety. Functional mobility was then completed back to the recliner with CGA and use of w/w, there she was left sitting upright with call light in hand, tray table in place, and phone in reach. Continue with rec D/C plan to SNF. AB Benítez/Shannon
--- NOTE | 2019-10-03 08:40 | NUR ---
PT SITTING UP IN RECLINER CHAIR, RESP-EASY AND REGULAR. EATING BREAKFAST. TOLERATED ROUTINE MEDICATIONS. CALL LIGHT IN REACH. SEE SHIFT ASSESSMENT.
--- NOTE | 2019-10-03 10:59 | NUR ---
SITTING UP IN RECLINER CHAIR. RESP-EASY AND REGULAR. OXYGEN IN USE. NO C/O AT THIS TIME. CALL LIGHT IN REACH.
[2019-10-03 12:00] VITALS: BP 149/45
--- NOTE | 2019-10-03 12:48 | NUR ---
Received auth for patient to go to [facility], patient is ok to go when medically stable for discharge.
[2019-10-03] MEDS ORDERED: PREDNISONE10 MG PO (13:07)
[2019-10-03] MEDS ORDERED: LEVOFLOXACIN500 MG PO (13:07)
[2019-10-03] MEDS ORDERED: FUROSEMIDE20 M1 PO (13:07)
--- NOTE | 2019-10-03 13:35 | NUR ---
Patient discharged to [facility] via [facility] at 3PM. NH, nursing, silver steward and patients daughter all notified.
--- NOTE | 2019-10-03 14:03 | NUR ---
SPOKE WITH TEREZA AT [facility] GAVE REPORT.
--- NOTE | 2019-10-03 14:04 | NUR ---
Discharge instructions reviewed with patient/family. Patient receptive and verbalizes understanding. Follow-up care arranged. Written instructions given to patient/family. HEPLOCK REMOVED. PT REFUSED TO HAVE NEW DRESSINGS REMOVED AND PICTURES TAKEN AT THIS TIME. JEN MINAYA
--- NOTE | 2019-10-03 14:57 | NUR ---
[facility] ON FLOOR FOR PICKUP VIA STRETCHER TO [facility].
--- NOTE | 2019-10-03 16:14 | NUR ---
OCCUPATIONAL THERAPY CO-SIGN I approve of the Occupational Therapy notes written above. ALDO LEMONS, OTR/L
--- NOTE | 2019-10-04 07:54 | NUR ---
PHYSICAL THERAPY CO-SIGN I approve of the Physical Therapy notes written above. Zhanna Sheridan PT
== END 2019-10-03 14:57 | disposition other institution (70) | DRG 871 ==
LOC: ED 19:55 → 4E 21:25 → EDHOLD 21:25 → ICCU 21:25 → 4E 09-27 09:38
PROVIDERS: Emergency Medicine; Internal Medicine; Internal Medicine Critical Care Medicine; Registered Nurse; Student in an Organized Health Care Education/Training Program; ADMIT Internal Medicine
DX: A40.8 Other streptococcal sepsis (principal); J96.01 Acute respiratory failure with hypoxia; N17.0 Acute kidney failure with tubular necrosis; I50.33 Acute on chronic diastolic (congestive) heart failure; J15.6 Pneumonia due to other Gram-negative bacteria; E87.1 Hypo-osmolality and hyponatremia; N39.0 Urinary tract infection, site not specified; N18.4 Chronic kidney disease, stage 4 (severe); I13.0 Hypertensive heart and chronic kidney disease with heart failure and stage 1 through stage 4 chronic kidney disease, or unspecified chronic kidney disease; I48.21 Permanent atrial fibrillation; J44.1 Chronic obstructive pulmonary disease with (acute) exacerbation; J44.0 Chronic obstructive pulmonary disease with (acute) lower respiratory infection; I24.8 Other forms of acute ischemic heart disease; E87.5 Hyperkalemia; R73.9 Hyperglycemia, unspecified; E83.41 Hypermagnesemia; D64.9 Anemia, unspecified; K21.9 Gastro-esophageal reflux disease without esophagitis; E87.6 Hypokalemia; I44.7 Left bundle-branch block, unspecified; I35.0 Nonrheumatic aortic (valve) stenosis; I25.10 Atherosclerotic heart disease of native coronary artery without angina pectoris; J20.9 Acute bronchitis, unspecified; Z98.49 Cataract extraction status, unspecified eye; Z88.0 Allergy status to penicillin; Z88.8 Allergy status to other drugs, medicaments and biological substances; Z80.8 Family history of malignant neoplasm of other organs or systems; Z79.899 Other long term (current) drug therapy; Z79.01 Long term (current) use of anticoagulants; Z87.891 Personal history of nicotine dependence

== ENCOUNTER 2019-10-15 15:57 | Inpatient (IN) | payer OTHER ==
[~2019-10-15] VITALS: Ht 152.4 cm; Wt 77.3 kg
[2019-10-15] VITALS (10 sets, daily range): BP systolic 132–178; BP diastolic 45–69
[~2019-10-15 15:57] MED LIST changes: +BENICAR5 MG PO; +IRON325 M1 PO; +LASIX40 MG PO; +LEVOFLOXACIN500 MG PO; +MIRALAX119 GM PO; +PREDNISONE10 MG PO; +ROBAXIN-750750 MG PO; +VITAMIN D10000 UNIT PO
[2019-10-15 16:24] LABS: ABG BASE EXCESS 3.6 mmol/L (-2.0-2.0); ARTERIAL BLOOD GAS PH 7.332 (7.35-7.45)
--- NOTE | 2019-10-15 16:59 | NUR ---
NITROGYLCERIN DRIP INCREASED 10MCG/MIN. PRESSSURE 165/54. PULSE 77.
[2019-10-15 17:06] LABS: BASO # 0.1 10*3/uL (0.0-0.1); BASO % 0.5 % (0.0-1.0); EOS # 0.4 10*3/uL (0.0-0.4); EOS % 2.4 % (1.0-4.0); HEMATOCRIT 35.3 % (37.0-47.0); HEMOGLOBIN 10.9 g/dl (12.0-16.0); LYMPH # 0.7 10*3/uL (1.3-4.4); LYMPH % 4.3 % (27.0-41.0); MEAN CELL VOLUME 92.2 fl (81.0-99.0); MEAN CORPUSCULAR HGB 28.5 pg (27.0-31.0); MEAN CORPUSCULAR HGB CONC 30.9 g/dl (33.0-37.0); MEAN PLATELET VOLUME 10.3 fl (9.6-12.3); MONO # 0.7 10*3/uL (0.1-1.0); MONO % 4.3 % (3.0-9.0); NEUT # 14.8 10*3/uL (2.3-7.9); NEUT % 87.7 % (47.0-73.0); PLATELET COUNT AUTOMATED 220 10*3/uL (130-400); RED BLOOD COUNT 3.83 10*6/uL (4.10-5.10); RED CELL DISTRI WIDTH 17.2 % (0-14.5); WHITE BLOOD COUNT 16.8 10*3/uL (4.8-10.8)
--- NOTE | 2019-10-15 17:07 | NUR ---
NITRO DRIP DECREASED TP 8MCG/MIN. BP 136/45.
--- NOTE | 2019-10-15 17:14 | NUR ---
DECREASED NITRO 5MCG/MIN.
--- NOTE | 2019-10-15 17:14 | NUR ---
NITRO DRIP DECREASED TO 5MCG/MIN.
--- NOTE | 2019-10-15 17:25 | NUR ---
DR. LEE AWARE OF BLOOD PRESSURE. V/O KEEP NITRO DRIP RUNNING AT 5MCG/MIN. RESPIRATIONS 17/MIN.
[2019-10-15 17:35] LABS: ALBUMIN 3.4 gm/dl (3.1-4.5); ALKALINE PHOSPHATASE 55 U/L (45-117); BUN 34 mg/dl (7-24); CHLORIDE 99 mmol/L (98-107); CREATININE 1.87 mg/dL (0.55-1.02); POTASSIUM 4.7 mmol/L (3.5-5.1); SGOT/AST 11 IU/L (3-35); SGPT/ALT 25 U/L (12-78); SODIUM 133 mmol/L (136-145); TOTAL PROTEIN 6.7 gm/dL (6.4-8.2); TROPONIN I < 0.015 ng/ml (<0.045)
[2019-10-15 18:08] LABS: ACT PARTIAL THROMBO TIME 23.6 SECONDS (20.0-32.1)
[2019-10-15 18:55] LABS: BILIRUBIN NEGATIVE (NEGATIVE); BLOOD TRACE-INTACT (NEGATIVE); CLARITY CLOUDY (CLEAR); COLOR YELLOW (YELLOW); GLUCOSE NEGATIVE (NEGATIVE); KETONE NEGATIVE (NEGATIVE)
[2019-10-15 18:56] LABS: LEUKO ESTERASE 1+ (NEGATIVE); NITRITE NEGATIVE (NEGATIVE); UROBILINOGEN 0.2 E.U./dl (0.2-1.0)
[2019-10-15 19:00] LABS: RBC 0-2 rbc/hpf (0-2); WBC 0-2 wbc/hpf (0-5)
--- NOTE | 2019-10-15 19:01 | NUR ---
ATTEMPTED TO TAKE PT UPSTAIRS. THEY ARE NOT READY FOR PT. WILL TRY AGAIN SOON.
--- NOTE | 2019-10-15 19:36 | NUR ---
A 84, admitted to , under the services of CM Ríos DO with a diagnosis of CHF. Chief complaint is SHORTNESS OF BREATH. Patient arrived via stretcher from ER. Monitor applied. Initial assessment completed. Vital signs taken and recorded. CM RÍOS DO notified of admission to the unit. Orders received. See assessment for past medical history, medications and allergies. Patient and/or family oriented to unit. [facility] visitation policy reviewed. Clothing/patient valuable form completed. KAYDEN HOU
[2019-10-15] MEDS ORDERED: CEPACOL SORE T1 EACH PO (20:07)
[2019-10-15] MEDS ORDERED: Ipratropium Brom3 ML INH (20:09)
--- NOTE | 2019-10-15 20:12 | NUR ---
MED REC COMPLETE WITH LIST FROM [facility].
--- NOTE | 2019-10-15 20:28 | NUR ---
DR WILSON AWARE OF MED REC BEING COMPLETE
--- NOTE | 2019-10-15 22:51 | NUR ---
ATTEMPTED TO CALL RESIDENT REGARDING CRITICAL TROPONIN. NO ANSWER
--- NOTE | 2019-10-15 22:56 | NUR ---
DR WILSON CALLED BACK AND IS AWARE OF CRITICAL TROPONIN
[2019-10-16] VITALS: BP 149/70
[2019-10-16 06:28] LABS: BASO # 0.1 10*3/uL (0.0-0.1); BASO % 0.5 % (0.0-1.0); EOS # 0.3 10*3/uL (0.0-0.4); EOS % 3.6 % (1.0-4.0); HEMATOCRIT 26.9 % (37.0-47.0); HEMOGLOBIN 8.3 g/dl (12.0-16.0); LYMPH # 0.9 10*3/uL (1.3-4.4); LYMPH % 9.2 % (27.0-41.0); MEAN CELL VOLUME 92.1 fl (81.0-99.0); MEAN CORPUSCULAR HGB 28.4 pg (27.0-31.0); MEAN CORPUSCULAR HGB CONC 30.9 g/dl (33.0-37.0); MONO # 0.5 10*3/uL (0.1-1.0); MONO % 5.4 % (3.0-9.0); NEUT # 7.7 10*3/uL (2.3-7.9); NEUT % 80.8 % (47.0-73.0); PLATELET COUNT AUTOMATED 184 10*3/uL (130-400); RED BLOOD COUNT 2.92 10*6/uL (4.10-5.10); RED CELL DISTRI WIDTH 17.2 % (0-14.5); WHITE BLOOD COUNT 9.6 10*3/uL (4.8-10.8)
[2019-10-16 06:51] LABS: CREATININE 1.72 mg/dL (0.55-1.02); PHOSPHOROUS 3.6 mg/dL (2.5-4.9); POTASSIUM 3.8 mmol/L (3.5-5.1)
[2019-10-16 07:56] VITALS: BP 142/58
--- NOTE | 2019-10-16 08:02 | NUR ---
case management visits with patient, she is short term skilled at [facility], she states she has been there a couple of weeks, discussed with her returning to [facility] when she is medically stable for discharge and she stated she wanted to return home with [facility], she states she lives alone and has help from her family, discussed with her that she may not be strong enough at this time to return home and that returning to [facility] to continue her therapy and regain strength may be a better option, case management will visit with her again after the physical therapy evaluation and recommendation
--- NOTE | 2019-10-16 08:04 | NUR ---
Occupational therapy orders and nursing screen received. Will follow up with patient. Thank you. Aishwarya Fang, OTR/L
--- NOTE | 2019-10-16 08:07 | NUR ---
PHYSICAL THERAPY Screen and PT eval received will follow thank you Zhanna Sheridan PT
--- NOTE | 2019-10-16 08:09 | NUR ---
PATIENT COOPERATIVE DURING AM ASSESSMENT, MAHIN WRAPS APPLIED TO BLE PER PATIENT REQUEST AND +2-3 EDEMA, WILL CONTINUE TO MONITOR. CINDY FARRELL SPNRCC
--- NOTE | 2019-10-16 10:02 | NUR ---
PATIENT RESTING IN BED, C/O SOB AFTER BED BATH PROVIDED, O2 AT 98%, INSTRUCTED TO TAKE A FEW DEEP BREATHS, AND SAT PATIENT UP IN BED, SOB SUBSIDED. [facility]ARRELL [facility]
--- NOTE | 2019-10-16 10:44 | NUR ---
PATIENT C/O REDDENED AREA UNDER BREASTS AND IN GROIN AREA, APPLIED CREAM, PATIENT STATES "MUCH BETTER NOW." CINDY FARRELL SPNRCC
--- NOTE | 2019-10-16 10:55 | NUR ---
DR GIBSON NOTIFIED OF CONSULT.
--- NOTE | 2019-10-16 11:20 | NUR ---
Occupational therapy orders received and OT evaluation completed in full on floor four. Patient precautions include fall risk, ww use, 6LO2, B/L LE weakness, and CADDO. Per OT eval, OT recommends return to [facility] with OT/PT. Patient would benefit from continued OT treatment to maximize safety and independence with ADLs, mobility, and transfers[place], [id number]. Thank you for the referral. Aishwarya Fang, OTR/L
[2019-10-16 12:00] VITALS: BP 140/52
--- NOTE | 2019-10-16 12:38 | NUR ---
PATIENT RESTING IN BED COMFORTABLY, NO COMPLAINTS AT THIS TIME, REWRAPPED MAHIN BANDAGES ON BLE FOR COMFORT PER PATIENT. CINDY FARRELL SPNRCC
--- NOTE | 2019-10-16 13:16 | NUR ---
PATIENT RESTING IN BED, BLE ELEVATED TO HELP WITH EDEMA, NO COMPLAINS AT THIS TIME. CINDY FARRELL SPNRCC
--- NOTE | 2019-10-16 15:01 | NUR ---
PT evalution completed. Pt is fatigued with very minimal exertion, requires frequent rests and is slightly anxious about perfroming acitivity. Pt up with walker and PT, able to take a few steps then needs to sit d/t SOB and fatigue. Continue PT for transfers, gait, balance, endurance, safety, education. Plan for pt to transition to SNF. Pt lives alone and would not be safe to return home without SNF stay to improve strength, endurance, safety and independence. Moderate level PT evaluation. Thank you for this referral, Cathryn Ashby, PT.
[2019-10-16 16:00] VITALS: BP 136/41
[2019-10-16 20:00] VITALS: BP 144/47
[2019-10-17] VITALS: BP 149/46
[2019-10-17 08:00] VITALS: BP 156/47
--- NOTE | 2019-10-17 08:35 | NUR ---
PHYSICAL THERAPY Patient seen this am 1:1 for therapy visit and was resting supine in bed upon therapist arrival. Patient identified by name / and was very pleasant this morning. OT merchandising assistant was present for observation only this session as patient recorded 98% SpO2, HR 58 bpm with continuos O2-4L via NC. Patient transfers supine to sit EOB with MOD A, tolerating static EOB sit x several minutes to collect herself, CGA x 1. Patient performed sit to stand transfer, MIN A, demonstrating slow initial rise, then ambulated with use of wh walker, MIN A, 18'x 1, demonstrating very slow, cautious gait pattern, decreased stride and unsteady balance during 90 / 180 turns. Patient c/o's of SOB, instructed on purse lip breathing technique upon return to bedside chair. Patient SpO2 97 %, HR 70 bpm as patient remained in bedside chair with increased fatigue, call light, tray table, and telephone. Will continue per POC as tolerated, total treatment 16 minutes. Ramon Pina, GOVERNMENT AFFAIRS RESEARCHER
--- NOTE | 2019-10-17 08:50 | NUR ---
OT NOTE Pt was seen this A.M. 1:1 for 24 minute OT session. Upon arrival pt was supine in bed. Pt identified by name and and had complaints of feeling SOB. Pt presented to therapy with continous 4L-O2 via NC which she remained on throughout the entire session and resting SpO2 was 98% and heart rate 58 bpm. Pt transferred supine to sit EOB with modA for assist with UB. While sitting EOB pt completed BUE towel exercises over all planes of motion for 1 X 10 to increase and restore maximum functional strength. Pt required several rest breaks throughout due to limited endurance and quick onset of fatigue. Pt completed multiple sit to stand transfers from bed level with Ta and use of w/w for UE support. Pt required verbal prompts throughout for proper hand placement for increased I and improved technique. Challenged pt's static standing tolerance needed for increased I in self care tasks and functional transfers, pt was able to tolerate aprox 60 seconds before sitting due to fatigue. Functional mobility completed to the recliner with Ta and use of w/w. Pt was left sitting upright in the recliner with call light in hand and tray table in place. Continue with rec D/C plan to SNF. DILIP Benítez
--- NOTE | 2019-10-17 10:10 | NUR ---
Nutritional Support Services Note: Pt is on a low sodium diet with a fluid restriction of 1500. Pt is consuming 50-80% of meals. Labs BUN 29, GFR 28, Cr 1.72, Na 137. Continue to encourage good PO intakes. Will follow if needed. Sophia Wagner, Jessa qa internship
--- NOTE | 2019-10-17 11:11 | NUR ---
Patient updated clinicals, therapy evals and notes all faxed to [facility] to start precert for patient to return. Waiting on auth
--- NOTE | 2019-10-17 11:39 | NUR ---
case management visits with patient, daughter present, discussed with them patient returning to [facility] to complete rehab prior to returning home, daughter and patient were not sure patient would do that, daughter was inquiring about patient returning home, educated them that patient's oxgen needs are increased from what she liters she was on at home and that patient gets short of breath ambulating, also that if patient went home VNA visits 3 days a week and patient would benefit from 24 hour care for awhile, daughter stated she was unable to stay with patient when she was discharged, patient and daughter agree that patient would return to [facility] when stable, corporate meeting planner will make arrangements for patient to return to [facility]
[2019-10-17 12:00] VITALS: BP 138/42
[2019-10-17 16:00] VITALS: BP 151/47
[2019-10-17 20:00] VITALS: BP 147/47
--- NOTE | 2019-10-17 20:15 | NUR ---
IN PT ROOM AT THIS TIME TO COMPLETE ASSESSMENT. PT STATES SHE HAS NO COMPLAINTS AT THIS TIME OR NO QUESTIONS. CALL LIGHT WITHIN REACH, WILL CONTINUE TO MONITOR THE PATIENT
[2019-10-18] VITALS: BP 153/47
--- NOTE | 2019-10-18 01:03 | NUR ---
24 HR chart check completed.
--- NOTE | 2019-10-18 04:00 | NUR ---
Patient sleeping. Respirations relaxed and easy. Siderails up . [place] on. MARAL SHEPPARD
[2019-10-18 06:27] LABS: BASO % 0.4 % (0.0-1.0); EOS # 0.4 10*3/uL (0.0-0.4); EOS % 4.8 % (1.0-4.0); HEMATOCRIT 29.7 % (37.0-47.0); HEMOGLOBIN 9.1 g/dl (12.0-16.0); LYMPH # 0.7 10*3/uL (1.3-4.4); LYMPH % 9.2 % (27.0-41.0); MEAN CELL VOLUME 93.1 fl (81.0-99.0); MEAN CORPUSCULAR HGB 28.5 pg (27.0-31.0); MEAN CORPUSCULAR HGB CONC 30.6 g/dl (33.0-37.0); MEAN PLATELET VOLUME 9.7 fl (9.6-12.3); MONO # 0.6 10*3/uL (0.1-1.0); NEUT # 6.1 10*3/uL (2.3-7.9); NEUT % 78.1 % (47.0-73.0); PLATELET COUNT AUTOMATED 159 10*3/uL (130-400); RED BLOOD COUNT 3.19 10*6/uL (4.10-5.10); RED CELL DISTRI WIDTH 17.2 % (0-14.5); WHITE BLOOD COUNT 7.9 10*3/uL (4.8-10.8)
[2019-10-18 06:37] LABS: CREATININE 1.61 mg/dL (0.55-1.02); POTASSIUM 3.8 mmol/L (3.5-5.1)
[2019-10-18 07:31] VITALS: BP 150/42
--- NOTE | 2019-10-18 07:31 | NUR ---
ASSESSMENT AND DOCUMENTATION COMPLETED. PT PLEASANT AND COOPERATIVE. A&OX3, HEART SOUNDS REGULAR AND STRONG, LUNGS DIMINISHED, ACTIVE BSX4, CAP REFILL<3, +1 PITTING EDEMA. PT TOLERATED WELL. CALL LIGHT WITHIN REACH, BED IN LOW POSITION. LACI TRAYLOR SPCC
--- NOTE | 2019-10-18 09:00 | NUR ---
case management visits with patient, [facility] when insurance precert is obtained and patient is medically stable for discharge
--- NOTE | 2019-10-18 10:00 | NUR ---
PT RESTING IN BED NO C/O PAIN OR DISCOMFROT AT THIS TIME. CALL LIGHT WITHIN REACH BED IN LOWEST POSITION. LACI TRAYLOR SPNRCC
--- NOTE | 2019-10-18 10:58 | NUR ---
OT NOTE Pt was seen this A.M. 1:1 for 25 minute OT session. Upon arrival pt was supine in bed. Pt identified by name and and had complaints of feeling SOB. Pt presented to therapy with continuous 5L-O2 via NC which she remained on throughout the entire session. Pt's resting SpO2 was 99% and heart rate 59 bpm. Pt transferred supine to sit EOB with Ta for assist with UB. Sit to stand completed from bed level with Ta and use of w/w for UE support. Functional mobility was then completed to the bedside commode with CGA and use of w/w. Throughout pt was educated on pursed lip breathing, pt presented with good carry over SpO2 reading 99% with pt complaints of feeling SOB. Pt transferred on/off bedside commode with Ta due to low surface. Functional mobility was then completed back to the recliner. There pt completed BUE towel exercises over all planes of motion for 1 X 10 to increase UE strength. Pt was left sitting upright in the recliner with call light in hand, tray table in place, and phone in reach. Continue with rec D/C plan to SNF. AB Benítez/Shannon
--- NOTE | 2019-10-18 11:05 | NUR ---
PHYSICAL THERAPY Patient seen this am 1:1 for therapy visit and was sitting up in bedside chair following OT assistant professor nurse education treatment. Patient identified by name / and presented with continuos O2-5L via NC. Patient SpO2 92%, HR 78 bpm prior to treatment and transfers sit to stand MOD A from low chair surface. Patient ambulated with use of wh walker, 30'x 1, MIN/CGA, demonstrating very slow huong, decreased stride and quick onset of fatigue. Patient instructed on purse lip breathing technique, requiring brief standing rest break, < 20 seconds, before returning to bedside chair. Patient was also very cautious during all 90/180 turns and recorded Sp02 88%, HR 84 bpm following gait ex. Patient remained in bedside chair with call light, tray table and telephone. Will continue per POC as tolerated, total treatment time 14 minutes. Ramon Pina, TUNNEL KILN FIRER
[2019-10-18 12:00] VITALS: BP 140/46
--- NOTE | 2019-10-18 12:00 | NUR ---
ASSESSMENT COMPLETED AND DOCUMENTATED. PT PLEASANT AND COOPERATIVE. PT SITTING UP IN CHAIR WATCHING TV. NO C/O PAIN OR DISCOMFORT AT THIS TIME. CALL LIGHT WITHIN REACH. LACI TRAYLOR SPNRCC
--- NOTE | 2019-10-18 12:13 | NUR ---
CODY CATH DC'D 10MLS REMOVED FROM BALLOON, CATH REMOVED WITHOUT DIFFICULTY. PT TOLERATED WELL. INSTRUCTED TO NOTIFY STAFF WITH NEED TO VOID AND VERBALIZE UNDERSTANDING. LACI TRAYLOR SPNRCC
--- NOTE | 2019-10-18 12:26 | NUR ---
In to see patient to let her know her insurance covers 100% for a full 100 days per calendar year. [facility] started precert for patient to return, waiting on auth.
--- NOTE | 2019-10-18 13:30 | NUR ---
PT RESTING IN CHAIR NO C/O PAIN OR DISCOMFORT AT THIS TIME. CALL LIGHT WITHIN REACH. REPORT GIVEN TO [employer]. LACI TRAYLOR SPNRCC
--- NOTE | 2019-10-18 14:45 | NUR ---
OCCUPATIONAL THERAPY CO-SIGN I approve of the Occupational Therapy notes written above. ALDO LEMONS, OTR/L
--- NOTE | 2019-10-18 15:12 | NUR ---
Patient has auth for [facility] that is good for today 10/18/19 and tomorrow 10/19/19 only. patient can go if medically stable for discharge.
[2019-10-18 16:00] VITALS: BP 144/58
--- NOTE | 2019-10-18 19:59 | NUR ---
IN PT ROOM AT THIS TIME TO DO ASSESSMENT, PT STATES THAT SHE IS READY TO LEAVE, BUT IS GLAD THAT SHE IS STAYING ANOTHER NIGHT SO THAT SHE MAY FEEL A BIT BETTER BEFORE LEAVING. SHE COMPLAINS OF STILL WHEEZING AND BEING SOB. PT HAS NO OTHER NEEDS/COMPLAINTS AT THIS TIME. CALL LIGHT IS WITHIN THE REACH, WILL CONTINUE TO MONITOR
[2019-10-18 20:00] VITALS: BP 122/52
[2019-10-18 23:55] VITALS: BP 155/52
--- NOTE | 2019-10-19 01:27 | NUR ---
24 HR chart check completed.
--- NOTE | 2019-10-19 03:32 | NUR ---
Patient sleeping. Respirations relaxed and easy. Siderails up . [place] on. MARAL SHEPPARD
--- NOTE | 2019-10-19 07:09 | NUR ---
Patient has auth to go to [facility] ending today. Patient ok to go if medically stable for discharge.
[2019-10-19 08:00] VITALS: BP 160/51
[2019-10-19] MEDS ORDERED: PREDNISONE10 MG PO (09:52)
[2019-10-19] MEDS ORDERED: LASIX40 MG PO (09:52)
--- NOTE | 2019-10-19 10:28 | NUR ---
Patient is discharged to [facility] via [facility] at 11:45 AM. NH, nursing/jd edwards developer notified. Discharge orders faxed. Attempted to notify daughter and was unable to contact. Left message.
--- NOTE | 2019-10-19 11:50 | NUR ---
[facility] Discharge instructions reviewed with patient/family. Patient receptive and verbalizes understanding. Follow-up care arranged. Written instructions given to patient/family. ADÁN BRYANT
--- NOTE | 2019-10-19 15:55 | NUR ---
OCCUPATIONAL THERAPY CO-SIGN I approve of the Occupational Therapy notes written above. KAT JAIN OTR/Shannon
--- NOTE | 2019-10-20 10:50 | NUR ---
PHYSICAL THERAPY CO-SIGN I approve of the Physical Therapy notes written above. Zhanna Sheridan PT
== END 2019-10-19 11:50 | disposition other institution (70) | DRG 291 ==
LOC: ED 15:57 → 4E 17:42 → EDHOLD 17:42 → 4E 18:34
PROVIDERS: Emergency Medicine; Family Medicine; Student in an Organized Health Care Education/Training Program; ADMIT Emergency Medicine
DX: I13.0 Hypertensive heart and chronic kidney disease with heart failure and stage 1 through stage 4 chronic kidney disease, or unspecified chronic kidney disease (principal); J96.02 Acute respiratory failure with hypercapnia; J96.01 Acute respiratory failure with hypoxia; I50.33 Acute on chronic diastolic (congestive) heart failure; E87.1 Hypo-osmolality and hyponatremia; E44.1 Mild protein-calorie malnutrition; I48.21 Permanent atrial fibrillation; N18.4 Chronic kidney disease, stage 4 (severe); D64.9 Anemia, unspecified; D72.829 Elevated white blood cell count, unspecified; K21.9 Gastro-esophageal reflux disease without esophagitis; R73.9 Hyperglycemia, unspecified; E55.9 Vitamin D deficiency, unspecified; I48.91 Unspecified atrial fibrillation; J40 Bronchitis, not specified as acute or chronic; J44.9 Chronic obstructive pulmonary disease, unspecified; Z79.01 Long term (current) use of anticoagulants; Z88.1 Allergy status to other antibiotic agents; Z88.0 Allergy status to penicillin; Z80.59 Family history of malignant neoplasm of other urinary tract organ; Z68.34 Body mass index [BMI] 34.0-34.9, adult

== ENCOUNTER 2021-03-29 18:45 | Emergency (ER) | payer OTHER ==
[~2021-03-29] VITALS: Wt 77.1 kg
[~2021-03-29 18:45] MED LIST changes: +CEPACOL SORE T1 EACH PO; +Ipratropium Brom3 ML INH
[2021-03-29] MEDS ORDERED: BACITRACIN28.4 GM T (20:16)
== END 2021-03-29 20:55 | disposition home or self-care (01) ==
LOC: ED 18:45
DX: S51.811A Laceration without foreign body of right forearm, initial encounter (principal); S00.83XA Contusion of other part of head, initial encounter; S80.11XA Contusion of right lower leg, initial encounter; Z88.0 Allergy status to penicillin; Z88.4 Allergy status to anesthetic agent; Z79.899 Other long term (current) drug therapy; Z79.2 Long term (current) use of antibiotics; Z87.891 Personal history of nicotine dependence; W01.0XXA Fall on same level from slipping, tripping and stumbling without subsequent striking against object, initial encounter; Y93.89 Activity, other specified; Y92.89 Other specified places as the place of occurrence of the external cause; Y99.8 Other external cause status

== ENCOUNTER → 2021-04-02 | Outpatient (CLI) | payer OTHER ==
[~2021-04-02] MED LIST changes: +BACITRACIN28.4 GM T
== END ==
LOC: WOUNDCARE 02:25
PROVIDERS: ATTEND Nurse Practitioner Primary Care
DX: S51.811A Laceration without foreign body of right forearm, initial encounter (principal); I48.91 Unspecified atrial fibrillation; Z98.49 Cataract extraction status, unspecified eye; Z79.01 Long term (current) use of anticoagulants; Z79.899 Other long term (current) drug therapy; Z87.891 Personal history of nicotine dependence; W01.0XXA Fall on same level from slipping, tripping and stumbling without subsequent striking against object, initial encounter; Y93.89 Activity, other specified; Y92.098 Other place in other non-institutional residence as the place of occurrence of the external cause; Y99.8 Other external cause status

== ENCOUNTER → 2021-04-10 | Outpatient (CLI) | payer OTHER | LOC: WOUNDCARE 01:21 | PROVIDERS: ATTEND Nurse Practitioner Primary Care | DX: S51.811D Laceration without foreign body of right forearm, subsequent encounter (principal); I48.91 Unspecified atrial fibrillation; Z98.49 Cataract extraction status, unspecified eye; Z79.01 Long term (current) use of anticoagulants; Z79.899 Other long term (current) drug therapy; Z87.891 Personal history of nicotine dependence; W01.0XXD Fall on same level from slipping, tripping and stumbling without subsequent striking against object, subsequent encounter ==

== ENCOUNTER → 2021-04-17 | Outpatient (CLI) | payer OTHER | LOC: WOUNDCARE 04-16 00:45 | PROVIDERS: ATTEND Nurse Practitioner | DX: S51.811D Laceration without foreign body of right forearm, subsequent encounter (principal); I48.91 Unspecified atrial fibrillation; Z98.49 Cataract extraction status, unspecified eye; Z79.01 Long term (current) use of anticoagulants; Z79.899 Other long term (current) drug therapy; Z87.891 Personal history of nicotine dependence; W01.0XXD Fall on same level from slipping, tripping and stumbling without subsequent striking against object, subsequent encounter ==

== ENCOUNTER → 2021-04-30 | Outpatient (CLI) | payer OTHER | LOC: WOUNDCARE 10:03 | PROVIDERS: ATTEND Nurse Practitioner | DX: S51.012A Laceration without foreign body of left elbow, initial encounter (principal); I48.91 Unspecified atrial fibrillation; Z98.49 Cataract extraction status, unspecified eye; Z79.01 Long term (current) use of anticoagulants; Z79.899 Other long term (current) drug therapy; Z87.891 Personal history of nicotine dependence; W01.0XXA Fall on same level from slipping, tripping and stumbling without subsequent striking against object, initial encounter; Y93.89 Activity, other specified; Y92.89 Other specified places as the place of occurrence of the external cause; Y99.8 Other external cause status ==

== ENCOUNTER → 2021-05-08 | Outpatient (CLI) | payer OTHER | LOC: WOUNDCARE 05-07 02:18 | PROVIDERS: ATTEND Nurse Practitioner | DX: S51.012D Laceration without foreign body of left elbow, subsequent encounter (principal); I48.91 Unspecified atrial fibrillation; Z98.49 Cataract extraction status, unspecified eye; Z79.01 Long term (current) use of anticoagulants; Z79.899 Other long term (current) drug therapy; Z87.891 Personal history of nicotine dependence; W01.0XXD Fall on same level from slipping, tripping and stumbling without subsequent striking against object, subsequent encounter ==